=== PATIENT | female | born 1935 | race Caucasian/White ===

== ENCOUNTER → 2018-08-09 | Outpatient (CLI) | payer MEDICARE, OTHER ==
[~2018-08-09] MED LIST: AMINOPHYLLINE 25 MG/ML, 10ML ONE; ASCO500C2 PO; ASPI-515 PO; ATEN100T PO; ATEN25TA PO; CALC-116 PO; CIPR500T87 PO; D-3 PO; DIAZIDE; FISH1CAP PO; HYDR25TA6 PO; LETR2.5T2 PO; LEVO112T2 PO; LISI-167 PO; LISI40TA PO; MAGN250T2 PO; METR500T PO; NIFE90TA PO; POTA99TA14 PO; PRAV20TA PO; REGADENOSON 0.4 MG/5 ML SYRINGE ONE; SIMV20TA PO; TRIA1CAP3 PO; VITA400C42 PO
== END | disposition home or self-care (01) ==
LOC: CFH 06:44
PROVIDERS: ATTEND Internal Medicine Cardiovascular Disease
DX: I08.3 Combined rheumatic disorders of mitral, aortic and tricuspid valves (principal); R06.02 Shortness of breath; I10 Essential (primary) hypertension; E78.5 Hyperlipidemia, unspecified
CPT/HCPCS: 78452; 93017; 93306; A9502; J0280; J2785

== ENCOUNTER → 2019-04-20 | Outpatient (CLI) | payer MEDICARE, OTHER ==
[~2019-04-20] MED LIST changes: +ACET-1600 PO; -AMINOPHYLLINE 25 MG/ML, 10ML ONE; +AMLO-150 PO; +ASPI-496 PO; +BENZ-17 PO; +CARV12.52 PO; +FISH OIL PO; +LEVO88TA4 PO; +LISI-170 PO; -REGADENOSON 0.4 MG/5 ML SYRINGE ONE; +ROSU10TA2 PO; +SPIR25TA5 PO; +VITAMIN E PO
[2019-04-20 11:48] LABS: BASOPHILS # (AUTO) 0.03 x10^3/uL (0-0.1); BASOPHILS % (AUTO) 1 % (0-1); EOSINOPHILS % (AUTO) 4 % (1-7); LYMPHOCYTES # (AUTO) 0.95 x10^3/uL (1-3.4); LYMPHOCYTES % (AUTO) 19 % (22-44); MD NO; MEAN CORPUSCULAR HEMOGLOBIN 33.1 pg (27.0-34.8); MEAN CORPUSCULAR HGB CONC 33.4 g/dL (32.4-35.8); MEAN PLATELET VOLUME 7.6 fL (7.4-10.4); MONOCYTES % (AUTO) 8 % (2-9); NEUTROPHILS # (AUTO) 3.56 x10^3/uL (1.8-6.8); NEUTROPHILS % (AUTO) 69 % (42-75); PLATELET COUNT 235 x10^3/uL (130-400); RED BLOOD COUNT 3.68 x10^6/uL (3.82-5.3); RED CELL DISTRIBUTION WIDTH 12.4 % (9.6-15.2)
[2019-04-20 11:58] LABS: ALBUMIN 3.5 g/dL (3.4-5.0); ANION GAP 6 mmol/L (5-15); CALCIUM 8.5 mg/dL (8.5-10.1); CHLORIDE 103 mmol/L (98-107)
[2019-04-20 12:01] LABS: ALANINE AMINOTRANSFERASE 25 U/L (12-78); ALKALINE PHOSPHATASE 63 U/L (45-117); BILIRUBIN,TOTAL 0.4 mg/dL (0.2-1.0); CREATININE 0.87 mg/dL (0.55-1.02); TOTAL PROTEIN 6.9 g/dL (6.4-8.2)
== END | disposition home or self-care (01) ==
LOC: STAR 10:29
PROVIDERS: ATTEND Surgery
DX: Z01.818 Encounter for other preprocedural examination (principal); I65.22 Occlusion and stenosis of left carotid artery; I44.0 Atrioventricular block, first degree; R94.31 Abnormal electrocardiogram [ECG] [EKG]
CPT/HCPCS: 36415; 71046; 80053; 85025; 93005

== ENCOUNTER 2019-04-24 05:22 | Inpatient (IN) | payer MEDICARE, OTHER ==
[~2019-04-24] VITALS: Ht 165.1 cm; Wt 72.2 kg
[~2019-04-24 05:22] MED LIST changes: -ACET-1600 PO
[2019-04-24] MEDS ORDERED: LIDOCAINE 1%, 20ML ONE (06:04)
[2019-04-24] MEDS ORDERED: THROMBIN (RECOMBINANT) 20,000 UNIT VIAL TP ONE (06:04)
[2019-04-24] MEDS ORDERED: HEPARIN 1,000 UNITS/ML, 10ML ONE (06:04)
[2019-04-24] MEDS ORDERED: BUPIVACAINE/PF 0.5% ONE (06:04)
[2019-04-24] MEDS ORDERED: EPINEPHRINE 1 MG/ML, 1ML ONE (06:04)
[2019-04-24] MEDS ORDERED: PROTAMINE SULFATE 10 MG/ML, 5ML ONE (06:04)
[2019-04-24] MEDS ORDERED: PAPAVERINE 30 MG/ML, 2ML ONE (06:04)
[2019-04-24] MEDS ORDERED: BACITRACIN 50,000 UNIT ONE (06:05)
[2019-04-24] MEDS ORDERED: LACTATED RINGERS 1,000 ML IV SCH ×3 (07:04→12:30)
[2019-04-24 07:07] VITALS: BP 128/64
[2019-04-24] MEDS ORDERED: LIDOCAINE-MPF 1%, 2ML ONE (07:16)
[2019-04-24] MEDS ORDERED: LIDOCAINE-MPF 1%, 2ML INFIL ONE (07:30)
[2019-04-24] MEDS ORDERED: FENTANYL PF 250 MCG/5ML ONE (07:31)
[2019-04-24] MEDS ORDERED: ACET-1600 PO (07:36)
[2019-04-24] MEDS ORDERED: hydrALAzine 20 MG/ML, 1ML IV PRN (08:00)
[2019-04-24] MEDS ORDERED: FENTANYL PF 100 MCG/2ML IV PRN (08:00)
[2019-04-24] MEDS ORDERED: ACETAMINOPHEN 325 MG TABLET PO PRN (08:00)
[2019-04-24] MEDS ORDERED: HYDROmorphone 2 MG/ML, 1ML IVPush PRN ×2 (08:00→10:30)
[2019-04-24] MEDS ORDERED: LABETALOL 5MG/ML, 20ML IV PRN (08:00)
[2019-04-24] MEDS ORDERED: OXYcodone 5 MG/5 ML ORAL.SOL UDC PO PRN ×2 (08:00→10:30)
[2019-04-24] MEDS ORDERED: PROMETHAZINE 25 MG/ML, 1ML IV PRN (08:00)
[2019-04-24] MEDS ORDERED: ONDANSETRON 2MG/ML, 2ML IV PRN (08:00)
[2019-04-24] MEDS ORDERED: ONDANSETRON ODT 8 MG PO PRN (08:00)
[2019-04-24] MEDS ORDERED: PROMETHAZINE 25 MG SUPP PR PRN (08:00)
[2019-04-24] MEDS ORDERED: PHENYLEPHRINE 10 MG/ML ONE (08:03)
[2019-04-24] MEDS ORDERED: EPHEDRINE 50 MG/ML, 1ML ONE (08:03)
[2019-04-24] MEDS ORDERED: LIDOCAINE 4%, 4 ML SYR/CANN TP ONE (08:03)
[2019-04-24] MEDS ORDERED: LIDOCAINE-MPF 2% ,5ML ONE (08:44)
[2019-04-24] MEDS ORDERED: DEXAMETHASONE 4 MG/ML, 1ML ONE (08:44)
[2019-04-24] MEDS ORDERED: PROPOFOL 10 MG/ML, 20ML ONE (08:44)
[2019-04-24] MEDS ORDERED: NEOSTIGMINE 1 MG/ML, 10ML ONE (08:44)
[2019-04-24] MEDS ORDERED: SUCCINYLCHOLINE 20 MG/ML, 10ML ONE (08:44)
[2019-04-24] MEDS ORDERED: CEFAZOLIN 1,000 MG ONE (08:44)
[2019-04-24] MEDS ORDERED: ROCURONIUM 10MG/ML,5ML ONE (08:44)
[2019-04-24] MEDS ORDERED: GLYCOPYRROLATE 0.2MG/1ML, 5ML ONE (08:44)
[2019-04-24] MEDS ORDERED: ONDANSETRON 2MG/ML, 2ML ONE (08:44)
[2019-04-24] MEDS ORDERED: SUGAMMADEX 200 MG/2 ML IVPush ONE (09:56)
[2019-04-24] MEDS ORDERED: OXYcodone 5 MG/5 ML ORAL.SOL UDC ONE (10:57)
[2019-04-24] MEDS ORDERED: ONDANSETRON 2MG/ML, 2ML IVPush PRN (11:00)
[2019-04-24] MEDS ORDERED: ACETAMINOPHEN 500 MG TABLET PO PRN (11:00)
[2019-04-24] MEDS: CEFAZOLIN PMX 1GM/50ML 50 ML IVPB SCH (17:10)
[2019-04-24 19:51] VITALS: BP 123/62
[2019-04-24] MEDS: LISINOPRIL 20 MG TABLET PO SCH (20:59)
[2019-04-24] MEDS: CARVEDILOL 12.5 MG TABLET PO SCH (20:59)
[2019-04-24] MEDS ORDERED: TEMPLATE NON-FORMULARY MED. (Rosuvastatin Calcium** (Crestor**) 10 MG) PO SCH (21:00)
[2019-04-25 00:23] VITALS: BP 129/67
[2019-04-25] MEDS: CEFAZOLIN PMX 1GM/50ML 50 ML IVPB SCH (00:48)
[2019-04-25 02:07] VITALS: BP 144/61
[2019-04-25 06:59] VITALS: BP 125/65
[2019-04-25] MEDS: LISINOPRIL 20 MG TABLET PO SCH (07:49)
[2019-04-25] MEDS: CARVEDILOL 12.5 MG TABLET PO SCH (07:50)
[2019-04-25] MEDS ORDERED: ENOXAPARIN 40 MG/0.4 ML SQ SCH (08:00)
[2019-04-25] MEDS ORDERED: ASCORBIC ACID 500 MG TABLET PO SCH (09:00)
[2019-04-25] MEDS ORDERED: FISH OIL PO SCH (09:00)
[2019-04-25] MEDS ORDERED: SPIRONOLACTONE 25 MG TABLET PO SCH (09:00)
[2019-04-25] MEDS ORDERED: VITAMIN E PO SCH (09:00)
[2019-04-25] MEDS ORDERED: ASPIRIN 81 MG TABLET EC PO SCH (09:00)
[2019-04-25] MEDS ORDERED: AMLODIPINE 5 MG TABLET PO SCH (09:00)
[2019-04-25] MEDS ORDERED: LEVOTHYROXINE 88 MCG TABLET PO SCH (09:00)
[2019-04-25 10:30] VITALS: BP 108/61
== END 2019-04-25 10:45 | disposition home or self-care (01) | DRG 39 ==
LOC: ORIP 05:22 → 4NE 13:24 → DCLOUNGE 04-25 10:32
PROVIDERS: ADMIT Surgery; ATTEND Surgery
PROC: 03CL0ZZ Extirpation of Matter from Left Internal Carotid Artery, Open Approach (ICD-10-PCS; 2019-04-24)
PROC: 03UN0JZ Supplement Left External Carotid Artery with Synthetic Substitute, Open Approach (ICD-10-PCS; 2019-04-24)
PROC: 03UL0JZ Supplement Left Internal Carotid Artery with Synthetic Substitute, Open Approach (ICD-10-PCS; 2019-04-24)
PROC: 03HY32Z Insertion of Monitoring Device into Upper Artery, Percutaneous Approach (ICD-10-PCS; 2019-04-24)
PROC: 03CN0ZZ Extirpation of Matter from Left External Carotid Artery, Open Approach (ICD-10-PCS; principal; 2019-04-24 08:00)
DX: I65.22 Occlusion and stenosis of left carotid artery (principal); I25.10 Atherosclerotic heart disease of native coronary artery without angina pectoris; I10 Essential (primary) hypertension; E78.5 Hyperlipidemia, unspecified; E03.9 Hypothyroidism, unspecified; Z82.3 Family history of stroke; Z82.49 Family history of ischemic heart disease and other diseases of the circulatory system; Z88.2 Allergy status to sulfonamides; I70.211 Atherosclerosis of native arteries of extremities with intermittent claudication, right leg; I70.212 Atherosclerosis of native arteries of extremities with intermittent claudication, left leg; I65.21 Occlusion and stenosis of right carotid artery
CPT/HCPCS: 36415; 86850; 86900; C1729; G0378; J0171; J0690; J1100; J1644; J1650; J2405; J2704; J2710; J2720; J3010; C1781; J0330; J2370; J2440; J7120

== ENCOUNTER 2019-04-30 13:35 | Observation (INO) | payer MEDICARE, OTHER ==
[~2019-04-30] VITALS: Ht 165.1 cm; Wt 70.9 kg
[~2019-04-30 13:35] MED LIST changes: +ACET-1600 PO
[2019-04-30 14:21] LABS: BASOPHILS % (AUTO) 0 % (0-1); EOSINOPHILS # (AUTO) 0.08 x10^3/uL (0-0.4); EOSINOPHILS % (AUTO) 1 % (1-7); LYMPHOCYTES # (AUTO) 0.57 x10^3/uL (1-3.4); LYMPHOCYTES % (AUTO) 6 % (22-44); MD NO; MEAN CORPUSCULAR HEMOGLOBIN 32.5 pg (27.0-34.8); MEAN CORPUSCULAR HGB CONC 33.5 g/dL (32.4-35.8); MEAN CORPUSCULAR VOLUME 97.1 fL (80-100); MEAN PLATELET VOLUME 7.6 fL (7.4-10.4); MONOCYTES # (AUTO) 0.35 x10^3/uL (0.2-0.8); MONOCYTES % (AUTO) 4 % (2-9); NEUTROPHILS # (AUTO) 8.78 x10^3/uL (1.8-6.8); NEUTROPHILS % (AUTO) 90 % (42-75); PLATELET COUNT 216 x10^3/uL (130-400); RED BLOOD COUNT 3.28 x10^6/uL (3.82-5.3); RED CELL DISTRIBUTION WIDTH 12.4 % (9.6-15.2)
[2019-04-30 14:30] LABS: ALANINE AMINOTRANSFERASE 22 U/L (12-78); ALBUMIN 3.4 g/dL (3.4-5.0); ANION GAP 6 mmol/L (5-15); CALCIUM 8.6 mg/dL (8.5-10.1); CHLORIDE 101 mmol/L (98-107)
[2019-04-30 14:32] LABS: ALKALINE PHOSPHATASE 61 U/L (45-117); BILIRUBIN,TOTAL 0.6 mg/dL (0.2-1.0); CREATININE 0.91 mg/dL (0.55-1.02); TOTAL PROTEIN 6.5 g/dL (6.4-8.2)
[2019-04-30] MEDS ORDERED: SODIUM CHLORIDE 0.9% 1,000 ML IV ONE (14:35)
--- NOTE | 2019-04-30 14:46 | NUR ---
PT AMBULATORY FROM HOME W/ . C/O ABD PAIN X2 DAYS. LAST BM ONE WEEK AGO PRIOR TO COMING TO [facility] FOR CAROTID ENDARTERECTOMY. TOOK STOOL SOFTENER AND MIRALAX. SMALL HARD STOOL THIS MORNING. STS IS EATING AND DRINKING NORMALLY. C/O NAUSEA, DENIES VOMITING. LOWER QUAD ABD PAIN WORSE ON PALPATION, UPPER QUADRANTS TENDER TO PALP. BS HYPERACTIVE X4. A&O X4 GCS 15 DENIES CP/DIFF BREATHING, LUNGS CTAB, VSS. MD IN ROOM FOR EVAL, PLAN FOR MEDS/CT SCAN. ABD XR SHOWS POSS NECROTIC SMALL BOWEL. LAB IN ROOM FOR LACTIC. PIV EST. CALL BRADY IN REACH, FALL PRECS IN PLACE.
[2019-04-30] MEDS ORDERED: MORPHINE SULFATE 4 MG/ML, 1ML IVPush PRN ×2 (15:00→17:30)
[2019-04-30] MEDS ORDERED: SODIUM CHLORIDE FLUSH 10ML SYR IVF ONE (15:00)
[2019-04-30] MEDS ORDERED: ONDANSETRON 2MG/ML, 2ML IVPush ONE (15:00)
[2019-04-30] MEDS ORDERED: ONDANSETRON 2MG/ML, 2ML ONE (15:08)
[2019-04-30] MEDS ORDERED: MORPHINE SULFATE 4 MG/ML, 1ML ONE (15:09)
[2019-04-30] MEDS ORDERED: OMNIPAQUE 350 MG/ML, 100ML BOTTLE ONE (15:50)
--- NOTE | 2019-04-30 16:00 | NUR ---
TASK RN: PT RESTING ON GURNEY. NADN. DAVIDSONS. STATES PAIN IS BETTER AT THIS TIME.
--- NOTE | 2019-04-30 16:14 | NUR ---
TASK RN: UA COLLECTED VIA STRAIGHT CATH, OK PER .
--- NOTE | 2019-04-30 16:23 | NUR ---
TASK RN: PT AWARE OF POC.
[2019-04-30 16:32] LABS: CULTURE INDICATED? YES; MICROSCOPIC INDICATED
--- NOTE | 2019-04-30 17:04 | NUR ---
HOSPITALIST AT BEDSIDE.
[2019-04-30] MEDS ORDERED: BISACODYL 10 MG SUPP PR ONE (17:30)
[2019-04-30] MEDS ORDERED: ACETAMINOPHEN 325 MG TABLET PO PRN (17:30)
[2019-04-30] MEDS ORDERED: GLYCERIN ADULT SUPP PR PRN (17:30)
[2019-04-30] MEDS ORDERED: ENOXAPARIN 40 MG/0.4 ML SQ SCH (17:30)
--- NOTE | 2019-04-30 18:03 | NUR ---
REPORT TO JUAN DANIEL LEGGETT. PT AWARE OF TRANSFER.
[2019-04-30 18:56] VITALS: BP 133/63
[2019-04-30] MEDS: LISINOPRIL 20 MG TABLET PO SCH (20:16)
[2019-04-30] MEDS: CARVEDILOL 12.5 MG TABLET PO SCH (20:17)
[2019-04-30] MEDS: DOCUSATE 100 MG CAPSULE PO SCH (20:18)
[2019-04-30] MEDS ORDERED: ATORVASTATIN 40 MG TABLET PO SCH (21:00)
[2019-05-01 00:36] VITALS: BP 94/56
[2019-05-01 02:34] VITALS: BP 112/53
[2019-05-01 05:29] LABS: BASOPHILS % (AUTO) 0 % (0-1); EOSINOPHILS # (AUTO) 0.06 x10^3/uL (0-0.4); EOSINOPHILS % (AUTO) 1 % (1-7); LYMPHOCYTES # (AUTO) 0.95 x10^3/uL (1-3.4); LYMPHOCYTES % (AUTO) 11 % (22-44); MD NO; MEAN CORPUSCULAR HEMOGLOBIN 32.9 pg (27.0-34.8); MEAN CORPUSCULAR VOLUME 99.8 fL (80-100); MONOCYTES # (AUTO) 0.88 x10^3/uL (0.2-0.8); MONOCYTES % (AUTO) 10 % (2-9); NEUTROPHILS # (AUTO) 7.22 x10^3/uL (1.8-6.8); NEUTROPHILS % (AUTO) 79 % (42-75); PLATELET COUNT 168 x10^3/uL (130-400); RED BLOOD COUNT 2.69 x10^6/uL (3.82-5.3); RED CELL DISTRIBUTION WIDTH 12.5 % (9.6-15.2)
[2019-05-01 05:34] LABS: ANION GAP 7 mmol/L (5-15); CALCIUM 7.8 mg/dL (8.5-10.1); CHLORIDE 101 mmol/L (98-107); CREATININE 1.11 mg/dL (0.55-1.02)
[2019-05-01] MEDS ORDERED: LEVOTHYROXINE 88 MCG TABLET PO SCH (06:00)
[2019-05-01 07:58] VITALS: BP 108/54
[2019-05-01] MEDS ORDERED: SPIRONOLACTONE 25 MG TABLET PO SCH (09:00)
[2019-05-01] MEDS ORDERED: ASCORBIC ACID 500 MG TABLET PO SCH (09:00)
[2019-05-01] MEDS ORDERED: POLYETHYLENE GLYCOL 17 GM PACKET PO SCH (09:00)
[2019-05-01] MEDS: DOCUSATE 100 MG CAPSULE PO SCH (09:00)
[2019-05-01] MEDS ORDERED: SENNA/DOCUSATE TABLET PO SCH (09:00)
[2019-05-01] MEDS ORDERED: AMLODIPINE 5 MG TABLET PO SCH (09:00)
[2019-05-01] MEDS ORDERED: ASPIRIN 81 MG TABLET EC PO SCH (09:00)
[2019-05-01] MEDS: CARVEDILOL 12.5 MG TABLET PO SCH (10:34)
[2019-05-01] MEDS: LISINOPRIL 20 MG TABLET PO SCH (10:35)
== END 2019-05-01 12:32 | disposition home or self-care (01) ==
LOC: ED 16:20 → INTOOBSV 17:13 → EDIP 17:13 → 3N 18:20 → DCLOUNGE 05-01 12:15
PROVIDERS: ADMIT Internal Medicine Infectious Disease; ATTEND Internal Medicine
DX: R10.30 Lower abdominal pain, unspecified (principal); K59.00 Constipation, unspecified; I73.9 Peripheral vascular disease, unspecified; E03.9 Hypothyroidism, unspecified; I10 Essential (primary) hypertension; E78.5 Hyperlipidemia, unspecified; I65.29 Occlusion and stenosis of unspecified carotid artery; Z87.891 Personal history of nicotine dependence
CPT/HCPCS: 36415; 74022; 74177; 80048; 80053; 81001; 83605; 83690; 85025; 87086; 87106; 93005; 96372; 96374; 96375; 99284; G0378; J1650; J2270; J2405; J7030; Q9967

== ENCOUNTER → 2019-07-12 | Outpatient (CLI) | payer MEDICARE, OTHER | END | disposition home or self-care (01) | LOC: CVU 15:29 | PROVIDERS: ATTEND Internal Medicine Cardiovascular Disease | DX: I08.3 Combined rheumatic disorders of mitral, aortic and tricuspid valves (principal); I27.20 Pulmonary hypertension, unspecified; I11.9 Hypertensive heart disease without heart failure; E78.5 Hyperlipidemia, unspecified; Z87.891 Personal history of nicotine dependence | CPT/HCPCS: 93306; 93356 ==

== ENCOUNTER → 2020-07-15 | Outpatient (CLI) | payer MEDICARE, OTHER ==
[~2020-07-15] MED LIST changes: +REGADENOSON 0.4 MG/5 ML SYRINGE ONE; +VITA-74 PO; -VITA400C42 PO
== END | disposition home or self-care (01) ==
LOC: CFH 07:39
PROVIDERS: ATTEND Internal Medicine Cardiovascular Disease
DX: I08.3 Combined rheumatic disorders of mitral, aortic and tricuspid valves (principal); I27.20 Pulmonary hypertension, unspecified; I25.10 Atherosclerotic heart disease of native coronary artery without angina pectoris; I10 Essential (primary) hypertension
CPT/HCPCS: 78452; 93017; 93306; A9502; J2785